=== PATIENT | male | born 1990 | race African-American/Black ===

== ENCOUNTER 2020-08-25 13:25 | Emergency (ER) | payer SELFPAY ==
[~2020-08-25] VITALS: Ht 172.7 cm; Wt 77.0 kg
[2020-08-25] MEDS ORDERED: ALBU8HFA IH (14:57)
[2020-08-25] MEDS ORDERED: ALPR1TAB7 PO (14:59)
[2020-08-25 15:00] VITALS: BP 111/62
[2020-08-25] MEDS ORDERED: IBUPROFEN 600 MG TABLET PO ONE (15:15)
== END 2020-08-25 15:57 | disposition home or self-care (01) ==
LOC: EDBD 13:25 → EMS 13:25
DX: S30.0XXA Contusion of lower back and pelvis, initial encounter (principal); X58.XXXA Exposure to other specified factors, initial encounter; Y93.89 Activity, other specified; Y92.89 Other specified places as the place of occurrence of the external cause; Y99.8 Other external cause status